=== PATIENT | male | born 2000 | race Caucasian/White ===

== ENCOUNTER 2023-08-08 19:36 | Emergency (ER) | payer SELFPAY ==
[~2023-08-08] VITALS: Ht 175.3 cm; Wt 65.9 kg
[2023-08-08] MEDS ORDERED: NS 1,000 ML IV ONE ×2 (19:45→22:45)
[2023-08-08 20:15] LABS: BASO # 0.1 K/mm3 (0.0-0.2); BASO % 0.5 % (0.0-2.0); EOS % 0.1 % (0.0-4.0); GRAN # 10.6 K/mm3 (1.4-6.5); GRAN % 71.8 % (42.2-75.2); HEMATOCRIT 49.1 % (42.0-52.0); HEMOGLOBIN 17.3 g/dl (13.5-18.0); LYMPH # 3.3 K/mm3 (1.2-3.4); LYMPH % 22.1 % (20.0-51.0); MEAN CELL VOLUME 89 fl (80.0-100.0); MEAN CORPUSCULAR HEMOGLOBIN 31 pg (27-31); MEAN CORPUSCULAR HGB CONC 35 g/dl (33.0-37.0); MEAN PLATELET VOLUME 11.7 fl (7.4-10.4); MONO # 0.8 K/mm3 (0.1-0.6); MONO % 5.2 % (1.7-9.3); PLATELET COUNT 255 K/mm3 (130-400); RED BLOOD COUNT 5.51 M/mm3 (4.20-5.60)
[2023-08-08] MEDS ORDERED: LEXAPRO 10MG10 MG PO (20:24)
[2023-08-08 20:31] LABS: ACETAMINOPHEN < 7.0 ug/mL (10-30); ALANINE AMINOTRANSFERASE 9 U/L (0-55); ALBUMIN 4.4 gm/dL (3.5-5.0); ALKALINE PHOSPHATASE 45 U/L (40-150); ANION GAP 21 mmol/L (7-16); AST,SGOT 17 U/L (5-34); BILIRUBIN,TOTAL 0.6 mg/dL (0.2-1.2); BLOOD UREA NITROGEN 10 mg/dL (9-21); CALCIUM 9.5 mg/dL (8.4-10.2); CHLORIDE 105 mmol/L (98-107); CREATININE, serum 1.08 mg/dL (0.72-1.25); GLUCOSE 155 mg/dL (70-99); MAGNESIUM 1.8 mg/dL (1.6-2.6); SODIUM 138 mmol/L (136-145); TOTAL PROTEIN 6.8 gm/dL (6.2-8.1)
[2023-08-08 20:39] LABS: ALCOHOL(ethanol),MEDICAL < 10 mg/dL (0-10); CARBON DIOXIDE 12 mmol/L (22-29); POTASSIUM 2.8 mmol/L (3.5-4.5); SALICYLATE < 5.0 mg/dL (15.0-30.0)
[2023-08-08 20:51] LABS: TSH w REFLEX 1.899 uIU/mL (0.350-4.940)
[2023-08-08] MEDS ORDERED: Potassium Chloride 100 ML IV ONE (21:15)
[2023-08-08] MEDS ORDERED: Ondansetron 4 MG/2 ML VIAL IV ONE (21:15)
[2023-08-08 22:13] LABS: COLLECTION METHOD CLEAN CATCH
[2023-08-08 22:19] LABS: PH 7.5 (5.0-8.5); URINE APPEARANCE CLEAR (CLEAR/HAZY); URINE BLOOD NEGATIVE (NEGATIVE); URINE COLOR YELLOW (YELLOW); URINE GLUCOSE NEGATIVE (NEGATIVE); URINE KETONE 1+ (NEGATIVE); URINE NITRATE NEGATIVE (NEGATIVE); URINE PROTEIN(semi-quant) NEGATIVE (NEGATIVE); URINE UROBILINOGEN 0.2 E.U/dL (0.2-1.0)
[2023-08-08 22:28] LABS: TRICYCLIC ANTIDEPRESS URINE NEGATIVE (NEGATIVE)
[2023-08-09 03:55] VITALS: BP 114/66; PULSE 91; TEMP 99
== END 2023-08-09 04:00 | disposition home or self-care (01) ==
LOC: COL.ER 19:36 → EDBD 19:37 → COL.ER 19:37
PROVIDERS: Internal Medicine
DX: F33.9 Major depressive disorder, recurrent, unspecified (principal); G92.9 Unspecified toxic encephalopathy; E87.5 Hyperkalemia; F17.210 Nicotine dependence, cigarettes, uncomplicated
CPT/HCPCS: J2310; J2405; J3480; J7030